=== PATIENT | male | born 1945 | race Two or more races ===

== ENCOUNTER 2017-04-15 20:22 | Inpatient (IN) | payer MEDICARE ==
[~2017-04-15] VITALS: Ht 172.7 cm; Wt 61.7 kg
[2017-04-15] MEDS ORDERED: SODIUM CHLORIDE 0.9% 1000ML 1,000 ML IV ONE ×2 (21:00→22:45)
--- NOTE | 2017-04-15 21:53 | Diagnostic Imaging Report ---
EXAMINATION: CHEST 2 VIEWS INDICATION: Swollen legs. COMPARISON: None FINDINGS: TUBES and LINES: None. LUNGS: Lungs are well inflated. Lungs are clear. There is no evidence of pneumonia or pulmonary edema. PLEURA: No pleural effusion or pneumothorax. HEART AND MEDIASTINUM: The cardiomediastinal silhouette is unremarkable. BONES AND SOFT TISSUES: No acute osseous lesion. Soft tissues are unremarkable. UPPER ABDOMEN: No free air under the diaphragm. IMPRESSION: No acute thoracic abnormality. Signed by: Dr. Vamshi Kapadia M.D. on 04/15/2017 9:50 PM
[2017-04-15 22:04] LABS: BASOPHILS % 0.2 % (0.0-1.0); HEMATOCRIT 36.4 % (38.2-49.6); HEMOGLOBIN 11.9 g/dL (14.0-18.0); LYMPHOCYTES # (AUTO) 1.1 (1.0-3.2); LYMPHOCYTES % 9.9 % (18.0-39.1); MEAN CORPUSCULAR HEMOGLOBIN 29.9 pg (28-32); MEAN CORPUSCULAR HGB CONC 32.7 g/dL (31-35); MEAN CORPUSCULAR VOLUME 91.5 fL (81-99); MONOCYTES # (AUTO) 1.2 (0.2-0.8); MONOCYTES % 11.1 % (4.4-11.3); NEUTROPHILS # (AUTO) 8.4 (2.1-6.9); NEUTROPHILS % 78.2 % (38.7-80.0); PLATELET COUNT 253 x10e3/uL (140-360); RED BLOOD COUNT 3.98 x10e6/uL (4.3-5.7); RED CELL DISTRIBUTION WIDTH 13.2 % (11.7-14.4)
--- NOTE | 2017-04-15 22:12 | Diagnostic Imaging Report ---
Examination: CT BRAIN WITHOUT CONTRAST History:Fever. Nausea. Comparison studies:None Technique: Axial images were obtained from the skull base to the vertex. Coronal and sagittal images reconstructed from the axial data. Intravenous contrast: None Findings: Scalp: No abnormalities. Bones: No fractures, blastic or lytic lesions. Brain sulci: Mild volume loss for age. Ventricles: Normal in size and configuration. No hydrocephalus. Extra-axial space: No abnormalities. Parenchyma: There are mild confluent areas of hypoattenuation in the periventricular and subcortical white matter, nonspecific. No masses, hemorrhage, or acute cortical based vascular insults. Sellar/suprasellar region: No abnormalities. Craniocervical junction: Patent foramen magnum. No Chiari one malformation. Incidental findings: None. Impression: 1. No acute intracranial abnormalities. 2. Mild chronic microvascular ischemic change and volume loss. Signed by: Dr. Mirta Justice M.D. on 04/15/2017 10:08 PM
[2017-04-15 22:30] LABS: ALBUMIN 3.4 g/dL (3.5-5.0); ALBUMIN/GLOBULIN RATIO 0.7 (0.8-2.0); ANION GAP 19.5 mmol/L (8-16); CALCIUM 9.7 mg/dL (8.4-10.2); CREATININE, SERUM 1.22 mg/dL (0.72-1.25); POTASSIUM 4.5 mmol/L (3.5-5.1)
--- NOTE | 2017-04-15 23:56 | Diagnostic Imaging Report ---
ADDENDUM #1 EXAM: CT Abdomen and Pelvis WITH contrast INDICATION: Fever, diarrhea, 25 pound weight loss in one week COMPARISON: None. TECHNIQUE: Abdomen and pelvis were scanned utilizing a multidetector helical scanner from the lung base to the pubic symphysis after administration of IV contrast. Coronal and sagittal reformations were obtained. Routine protocol was performed. Scan was performed when during portal venous phase. IV CONTRAST: 100 mL of Isovue-300 ORAL CONTRAST: Water RADIATION DOSE: Total DLP: 155.1 mGy*cm Estimated effective dose: (DLP x 0.015 x size factor) mSv COMPLICATIONS: None FINDINGS: LINES and TUBES: None. LOWER THORAX: Unremarkable HEPATOBILIARY: There is focal fatty infiltration adjacent to the falciform ligament. No focal hepatic lesions. No biliary ductal dilation. GALLBLADDER: No radio-opaque stones or sludge. No wall thickening. SPLEEN: No splenomegaly. PANCREAS: No focal masses or ductal dilatation. ADRENALS: No adrenal nodules KIDNEYS/URETERS: Kidneys enhance symmetrically. No hydronephrosis. 2.5 cm indeterminate cystic lesion in the inferior pole of the left kidney. 1.9 cm simple cyst in the inferior pole of the right kidney. No stones. GI TRACT: Circumferential thickening and hyperemia of the rectum . Appendix is not clearly identified. There is however no fat stranding or adenopathy in the right lower quadrant to suggest appendicitis. PELVIC ORGANS/BLADDER: Unremarkable. LYMPH NODES: No lymphadenopathy. VESSELS: There is mild atherosclerotic disease in the aorta and major arterial branches. PERITONEUM / RETROPERITONEUM: No free air or fluid. BONES: There are mild degenerative changes in the lumbar spine. SOFT TISSUES: Unremarkable. IMPRESSION: 1. Findings in the pelvis are consistent with proctitis in the appropriate clinical setting. 2. Follow-up with GI service is recommended. 3. Indeterminate lesion in the inferior pole of the left kidney. Follow-up with routine renal ultrasound is recommended for appropriate characterization. Signed by: Dr. Vamshi Kapadia M.D. on 04/16/2017 12:18 AM ORIGINAL REPORT EXAM: CT Abdomen and Pelvis WITH contrast INDICATION: Fever, diarrhea, 25 pound weight loss in one week COMPARISON: None. TECHNIQUE: Abdomen and pelvis were scanned utilizing a multidetector helical scanner from the lung base to the pubic symphysis after administration of IV contrast. Coronal and sagittal reformations were obtained. Routine protocol was performed. Scan was performed when during portal venous phase. IV CONTRAST: 100 mL of Isovue-300 ORAL CONTRAST: Water RADIATION DOSE: Total DLP: 155.1 mGy*cm Estimated effective dose: (DLP x 0.015 x size factor) mSv COMPLICATIONS: None FINDINGS: LINES and TUBES: None. LOWER THORAX: Unremarkable HEPATOBILIARY: There is focal fatty infiltration adjacent to the falciform ligament. No focal hepatic lesions. No biliary ductal dilation. GALLBLADDER: No radio-opaque stones or sludge. No wall thickening. SPLEEN: No splenomegaly. PANCREAS: No focal masses or ductal dilatation. ADRENALS: No adrenal nodules KIDNEYS/URETERS: Kidneys enhance symmetrically. No hydronephrosis. 2.5 cm indeterminate cystic lesion in the inferior pole of the left kidney. 1.9 cm simple cyst in the inferior pole of the right kidney. No stones. GI TRACT: Circumferential thickening and hyperemia of the rectum . Appendix is not clearly identified. There is however no fat stranding or adenopathy in the right lower quadrant to suggest appendicitis. PELVIC ORGANS/BLADDER: Unremarkable. LYMPH NODES: No lymphadenopathy. VESSELS: There is mild atherosclerotic disease in the aorta and major arterial branches. PERITONEUM / RETROPERITONEUM: No free air or fluid. BONES: There are mild degenerative changes in the lumbar spine. SOFT TISSUES: Unremarkable. IMPRESSION: 1. Signed by: Dr. Vamshi Kapadia M.D. on 04/15/2017 11:52 PM
[2017-04-16 00:27] LABS: BILIRUBIN,URINE NEGATIVE (NEGATIVE); KETONES,URINE TRACE (NEGATIVE); LEUKOCYTE ESTERASE ,URINE NEGATIVE (NEGATIVE); NITRITE,URINE NEGATIVE (NEGATIVE); URINE UROBILINOGEN 0.2 mg/dL (0.2 - 1)
[2017-04-16 00:28] LABS: CLARITY,URINE CLEAR (CLEAR); COLOR,URINE YELLOW (YELLOW); PROTEIN,URINE DIPSTICK 1+ (NEGATIVE)
[2017-04-16] MEDS ORDERED: SODIUM CHLORIDE 0.9% 1000ML 1,000 ML IV SCH (00:38)
[2017-04-16 00:43] LABS: EPITHELIAL CELLS,URINE RARE /LPF; RBC,URINE 0-5 /HPF (0-5); WBC,URINE (MAN) 0-5 /HPF (0-5)
[2017-04-16] MEDS ORDERED: ACETAMINOPHEN 325 MG TAB PO ONE (00:45)
[2017-04-16] MEDS ORDERED: PIPER-TAZ 3.375 GM/50 ML BAG IV SCH (00:45)
[2017-04-16] MEDS ORDERED: METRONIDAZOLE 500MG/NS 100ML IV SCH (00:45)
[2017-04-16] MEDS: ONDANSETRON HCL INJ 2 MG/ML VIAL IV PRN (02:47)
[2017-04-16] MEDS: MORPHINE SULFATE 5 MG/ML VIAL IV PRN (02:47)
[2017-04-16] MEDS: PIPER-TAZ 3.375 GM/NS 50 ML 50 ML IV SCH ×3 (05:45→22:00)
[2017-04-16] MEDS: METRONIDAZOLE 500MG/NS 100ML 100 ML IV SCH ×3 (05:54→18:00)
[2017-04-16] MEDS ORDERED: SODIUM CHLORIDE 0.9% 50ML 50 ML ONE (06:37)
[2017-04-16] MEDS ORDERED: IOPAMIDOL 370 MG/ML 200 ML INFUS..BTL INJ ONE (06:37)
[2017-04-16 09:01] LABS: BASOPHILS % 0.1 % (0.0-1.0); HEMATOCRIT 35.9 % (38.2-49.6); HEMOGLOBIN 11.5 g/dL (14.0-18.0); LYMPHOCYTES # (AUTO) 1.1 (1.0-3.2); LYMPHOCYTES % 11.1 % (18.0-39.1); MEAN CORPUSCULAR HEMOGLOBIN 29.7 pg (28-32); MEAN CORPUSCULAR VOLUME 92.8 fL (81-99); MONOCYTES # (AUTO) 1.2 (0.2-0.8); MONOCYTES % 12.2 % (4.4-11.3); NEUTROPHILS # (AUTO) 7.4 (2.1-6.9); PLATELET COUNT 230 x10e3/uL (140-360); RED BLOOD COUNT 3.87 x10e6/uL (4.3-5.7); RED CELL DISTRIBUTION WIDTH 13.4 % (11.7-14.4)
[2017-04-16 09:19] LABS: ANION GAP 14.7 mmol/L (8-16); BLOOD UREA NITROGEN 44 mg/dL (7-26); BUN/CREATININE RATIO 52 (6-25); CALCIUM 8.7 mg/dL (8.4-10.2); CARBON DIOXIDE 25 mmol/L (22-29); CHLORIDE 114 mmol/L (98-107); CREATININE, SERUM 0.84 mg/dL (0.72-1.25); EST GLOMERULAR FILTRATION RATE > 60 ML/MIN (60-); GLUCOSE 83 mg/dL (74-118); MAGNESIUM 2.7 MG/DL (1.3-2.1); POTASSIUM 3.7 mmol/L (3.5-5.1); SODIUM 150 mmol/L (136-145)
--- NOTE | 2017-04-16 10:54 | Diagnostic Imaging Report ---
EXAM: Renal Ultrasound INDICATION: Nausea. COMPARISON: CT abdomen and pelvis 04/15/2017 TECHNIQUE: Transverse and longitudinal images of the kidneys and bladder were obtained. FINDINGS: Right Kidney: Size: 11.0 cm. Renal cortex: 1.1 cm Echogenicity: Normal Collecting system: No hydronephrosis Stones: None Cyst/Mass: 1.1 x 0.9 x 0.9 cm simple cyst in the superior pole. No solid mass. Left Kidney: Size: 10.1 cm. Renal cortex: 1.0 cm Echogenicity: Normal Collecting system: No hydronephrosis Stones: None Cyst/Mass: 2.6 x 3.2 x 2.3 cm simple cyst is present in the inferior pole. No solid mass. Bladder: Normal contour. Bilateral ureteral jets are not visualized. Ascites: No free fluid. IMPRESSION: Bilateral renal simple cysts. No acute sonographic abnormality. Signed by: Dr. Joey Vogel M.D. on 04/16/2017 10:50 AM
[2017-04-16] MEDS ORDERED: PROPOFOL IV EMULSION 10 MG/ML 20 ML VIAL ONE (14:41)
[2017-04-16] MEDS ORDERED: FENTANYL CITRATE/PF 100MCG/2 ML INJ ONE (14:54)
[2017-04-16] MEDS ORDERED: MIDAZOLAM HCL 2 MG/2 ML VIAL ONE (14:54)
[2017-04-16] MEDS ORDERED: DEXTROSE 5% 1000ML 1,000 ML IV SCH (15:00)
[2017-04-16] MEDS ORDERED: BRIMONIDINE TART5 ML OP (15:41)
[2017-04-16] MEDS ORDERED: COMBIGAN EYE DRO5 ML OU (15:41)
[2017-04-16] MEDS ORDERED: ULTRAM 50MG50 MG PO (15:43)
[2017-04-16 16:38] VITALS: BP 130/70
[2017-04-16] MEDS: BRIMONIDINE/TIMOLOL (OPTH SOLN 5 ML DRPETTE OP SCH (17:00)
--- NOTE | 2017-04-16 17:44 | History and Physical ---
The patient does not have a local PCP CHIEF COMPLAINT: Diarrhea and weight loss. HISTORY OF PRESENT ILLNESS: Mr. Mckeon is a 71-year-old gentleman who presents with diarrhea and weight loss that has occurred over the last 10 to 14 days. The patient ate a bowl of soup about 10 days ago and had initially nausea and vomiting which has resolved, poor appetite and diarrhea that has been persistent for the last 10 days. He has lost weight from 140 down to 110. During that period, he has had no p.o. intake of anything down for the last 10 days, not even water. He cannot quite explain why he has not eaten or drank anything. He is not nauseated. His appetite is okay, but he was afraid that if he ate anything it would make the diarrhea worse is why he has not eaten. REVIEW OF SYSTEMS: He denies fever or chills. He has had significant weight loss. He denies sinus congestion or sore throat. He denies chest pain or palpitations. He denies shortness breath, wheezing or cough. He has some generalized abdominal pain. Denies nausea and vomiting although he did have some a week ago. He has had persistent diarrhea for the past 10 to 14 days. He denies dysuria or flank pain. He denies rash or pruritus. He denies joint pain or swelling. Denies headache, vertigo or loss of consciousness. He denies depression, agitation, homicidal or suicidal ideation. He denies bleeding or bruising. 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 He also has glaucoma and takes eye drops. ALLERGIES: NO KNOWN DRUG ALLERGIES. PAST SURGICAL HISTORY: Includes hernia repair. FAMILY HISTORY: Unremarkable. He denies family history of hypertension, diabetes or heart disease. SOCIAL HISTORY: The patient is . Telugu is his primary language. 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 He does not smoke, drink or use illegal drugs. He is generally independently functioning. He has been profoundly weak for the past 10 days. PHYSICAL EXAM: PSYCHIATRIC: He is alert and oriented times 3 with normal mood and affect. CONSTITUTIONAL: He is cachectic and emaciated. He weighs 110 pounds. He is in no acute distress. VITAL SIGNS: His initial blood pressure 113/79. Current blood pressure 132/76. Initial heart rate 77, current heart rate 57. Initial temperature 100.0. Current temperature 98.3. Respiratory rate 18. O2 sat 100% on room air. HEENT: Head is atraumatic. His eyes are anicteric with clear conjunctivae. Ears and nares are without erythema or discharge. Oropharynx is clear. NECK: Is supple with no mass or thyromegaly. LYMPHATIC SYSTEM: He has no palpable cervical, axillary or inguinal adenopathy. CARDIOVASCULAR: His heart has a regular rate and rhythm without murmur or extra heart sounds. No carotid bruit. Has no peripheral edema. Has palpable dorsal pedal pulses. RESPIRATORY: Clear to auscultation and percussion with normal respiratory effort. GASTROINTESTINAL: Abdomen is soft. He has some mild diffuse tenderness without rebound or guarding. He has no hepatosplenomegaly or masses palpable and normal bowel sounds are present. CUTANEOUS: His skin is warm and dry to touch with no rash or skin breakdown. MUSCULOSKELETAL: His joints are normal alignment without erythema or swelling. Has no calf tenderness. NEUROLOGIC: Exam is nonfocal with intact cranial nerves and no motor or sensory deficits. DIAGNOSTIC STUDIES: Chest x-ray shows no acute disease. CT scan of brain shows no acute disease. It shows some mild microvascular changes. Renal ultrasound shows no acute disease, but bilateral simple cysts. CT scan the abdomen shows thickening of the wall of the rectum and distal sigmoid colon consistent with colitis and proctitis. His UA is clear. TSH 0.540. His chemistry profile shows normal electrolytes. CO2 25. Creatinine 106. Glucose 111. Creatinine 1.22. BUN 63 for a GFR 59. Calcium 9.7. CBC shows a white count of 10.74 with 78% neutrophils, 10% lymphocytes, 11% monocytes. Hemoglobin 11.9, hematocrit 36.4 and platelet count 253,000. His transaminases, bilirubin and alkaline phos are normal. IMPRESSION AND PLAN 1. Persistent diarrhea/colitis/proctitis. The patient is started on IV Zosyn and Flagyl. I have ordered stool culture, stool for C. diff. and stool for occult blood. 2. Profound weight loss. GI has been consulted for colonoscopy in view of the above symptoms. 3. For prophylaxis the patient is on Pepcid and for GI prophylaxis SCDs for DVT prophylaxis. 4. Will also get a CT scan of the chest for part of the weight loss workup. Job#: [id number]
[2017-04-16] MEDS: TRAMADOL HCL 50 MG TAB PO PRN (18:07)
[2017-04-16] MEDS ORDERED: PEG (High)/E-LYTE SOLN 4,000 ML BTL PO ONE (19:30)
[2017-04-16 20:00] VITALS: BP 124/77
[2017-04-17] MEDS: METRONIDAZOLE 500MG/NS 100ML 100 ML IV SCH ×4 (00:17→17:52)
[2017-04-17] MEDS: ZOLPIDEM TARTRATE 10 MG TAB PO PRN ×2 (00:30→23:44)
[2017-04-17 00:51] VITALS: BP 138/80
[2017-04-17] MEDS ORDERED: CITRATE OF MAGNESIA 300ML BOTTLE PO ONE (01:00)
[2017-04-17 04:00] VITALS: BP 149/89
[2017-04-17] MEDS: PIPER-TAZ 3.375 GM/NS 50 ML 50 ML IV SCH ×3 (06:30→22:14)
[2017-04-17] MEDS ORDERED: SODIUM CHLORIDE 0.9% 50ML 0 ML ONE (06:31)
[2017-04-17] MEDS ORDERED: IOPAMIDOL 370 MG/ML 200 ML INFUS..BTL INJ ONE ×2 (06:31→12:41)
[2017-04-17 07:56] VITALS: BP 181/84
[2017-04-17 07:58] LABS: BASOPHILS % 0.1 % (0.0-1.0); EOSINOPHILS % 0.4 % (0.0-6.0); HEMATOCRIT 36.3 % (38.2-49.6); HEMOGLOBIN 11.5 g/dL (14.0-18.0); LYMPHOCYTES # (AUTO) 1.2 (1.0-3.2); LYMPHOCYTES % 13.8 % (18.0-39.1); MEAN CORPUSCULAR HEMOGLOBIN 29.6 pg (28-32); MEAN CORPUSCULAR HGB CONC 31.7 g/dL (31-35); MEAN CORPUSCULAR VOLUME 93.3 fL (81-99); MONOCYTES # (AUTO) 0.9 (0.2-0.8); NEUTROPHILS # (AUTO) 6.2 (2.1-6.9); NEUTROPHILS % 73.9 % (38.7-80.0); PLATELET COUNT 264 x10e3/uL (140-360); RED BLOOD COUNT 3.89 x10e6/uL (4.3-5.7); RED CELL DISTRIBUTION WIDTH 13.4 % (11.7-14.4)
[2017-04-17 08:31] LABS: ALANINE AMINOTRANSFERASE 15 IU/L (0-55); ALBUMIN 2.9 g/dL (3.5-5.0); ALBUMIN/GLOBULIN RATIO 0.8 (0.8-2.0); ALKALINE PHOSPHATASE 57 IU/L (40-150); ANION GAP 12.6 mmol/L (8-16); BLOOD UREA NITROGEN 29 mg/dL (7-26); BUN/CREATININE RATIO 36 (6-25); CALCIUM 8.9 mg/dL (8.4-10.2); CARBON DIOXIDE 26 mmol/L (22-29); CHLORIDE 114 mmol/L (98-107); EST GLOMERULAR FILTRATION RATE > 60 ML/MIN (60-); GLUCOSE 108 mg/dL (74-118); POTASSIUM 3.6 mmol/L (3.5-5.1); SODIUM 149 mmol/L (136-145)
[2017-04-17 09:00] LABS: FOLATE 13.5 ng/mL (7.0-15.4)
[2017-04-17 09:10] VITALS: BP 138/86
[2017-04-17] MEDS: BRIMONIDINE/TIMOLOL (OPTH SOLN 5 ML DRPETTE OP SCH ×2 (09:26→22:20)
[2017-04-17 09:36] LABS: FERRITIN 292.65 ng/mL (21.81-274.66)
--- NOTE | 2017-04-17 10:55 | Diagnostic Imaging Report ---
PROCEDURE: CT scan of the chest WITH intravenous contrast, using standard protocol. TECHNIQUE: The chest was scanned utilizing a multidetector helical scanner from the lung apex through the level of the adrenal glands after the IV administration of 100 cc of Isovue 370. Coronal and sagittal multiplanar reformations were obtained. COMPARISON: CT abdomen and pelvis 04/15/2017. INDICATIONS: WEIGHT LOSS FINDINGS: Lines/tubes: None. Lungs and Airways: The lungs and airways are normal with no focal abnormality demonstrated. Pleura: The pleural spaces are clear. Heart and mediastinum: The thyroid gland is normal. No significant mediastinal, hilar or axillary lymphadenopathy is seen. The heart and pericardium are within normal limits. Calcified lymph nodes are present in the right hilum and in the subcarinal region. Soft tissues: Normal. Abdomen: Limited contrast-enhanced views of the upper abdomen show no abnormality within the visualized liver, spleen, pancreas, or kidneys. The adrenal glands are normal. Bones: The visualized bony thorax is within normal limits. Degenerative changes of the thoracic spine. IMPRESSION: No acute abnormality of the chest. Dictated by: Joey Vogel M.D. on 04/17/2017 at 11:02 Electronically approved by: Joey Vogel M.D. on 04/17/2017 at 11:02
--- NOTE | 2017-04-17 12:25 | Progress Note ---
DATE: BINDER OPERATOR: Dr. Immanuel Garibay. CHIEF COMPLAINT: Diarrhea, proctitis. SUBJECTIVE: Complains of neck pain 5/10. Complains of rectal pain 8/10. OBJECTIVE VITAL SIGNS: Temperature 99.4, pulse 58, blood pressure 181/84, respiration 16, satting 99%. Weight 117, BMI 17.78. MEDICATIONS: Please see MAR. ASSESSMENT GENERAL: Patient is awake, alert, oriented x3. LUNGS: Clear to auscultation bilaterally. Normal respiratory effort. HEENT: Extraocular muscles are intact. Sclerae anicteric. ABDOMEN: Soft, flat. Bowel sounds present. RECTUM: Does have what probably appears to be either external hemorrhoids or likely some lesions, questionable type of condyloma. Patient will have a colonoscopy done today as well as EGD. CARDIOVASCULAR: Regular rate and rhythm. No murmurs appreciated. NEUROLOGICAL: Nonfocal. NECK: Supple. Trachea midline. EXTREMITIES: No calf tenderness. LABS: Sodium 149, potassium 3.6, chloride 114, CO2 26, BUN 29, creatinine 0.80, glucose 108. White count 8.45, hemoglobin 11.5, hematocrit 36.3, platelets 264. AST 19, ALT 15, total bilirubin 0.7, alkaline phosphatase 57. DIAGNOSES 1. Diarrhea, proctitis. Will continue with IV Zosyn and Flagyl. Stool for occult blood is positive. C. diff is pending. 2. Weight loss, unexplained. Will continue with a consult with GI, who is on the case. Patient will have a colonoscopy and EGD done today. Will continue on prophylaxis Pepcid and SCDs. Will also add Carafate 1 gram p.o. a.c. and nightly. Dictated by: Luis Alfredo Rutherford NP Job#: [id number]
[2017-04-17] MEDS ORDERED: CITRATE OF MAGNESIA 300ML BOTTLE PO NR (12:30)
[2017-04-17] MEDS ORDERED: SODIUM CHLORIDE 0.9% 50ML 50 ML ONE (12:41)
[2017-04-17 13:18] VITALS: BP 145/73
[2017-04-17] MEDS ORDERED: PANTOPRAZOLE 40 MG 10ML VIAL IV STA (17:02)
[2017-04-17] MEDS ORDERED: PANTOPRAZOL 40MG/SOD CHL 0.9% 250 ML IV SCH (17:15)
[2017-04-17] MEDS: FERROUS SULFATE 325 MG TAB PO SCH (17:52)
[2017-04-17] MEDS: PANTOPRAZOL 40MG/SOD CHL 0.9% 50 ML IV SCH ×2 (18:37→22:14)
[2017-04-17 19:09] LABS: WBC,FECAL (FECAL LACTOFERRIN) POSITIVE (NEGATIVE)
[2017-04-17 19:50] VITALS: BP 120/69
[2017-04-17] MEDS: MESALAMINE 1,000 MG SUPP RC SCH (22:14)
[2017-04-17] MEDS: SUCRALFATE 1 GM TAB PO SCH (22:14)
[2017-04-18 00:13] VITALS: BP 112/67
[2017-04-18] MEDS: METRONIDAZOLE 500MG/NS 100ML 100 ML IV SCH ×5 (01:15→23:45)
[2017-04-18] MEDS: PANTOPRAZOL 40MG/SOD CHL 0.9% 50 ML IV SCH ×4 (03:47→20:19)
[2017-04-18 04:59] VITALS: BP_SYST 112; BP_SYST 123; BP_DIAS 67; BP_DIAS 68
[2017-04-18] MEDS: SODIUM CHLORIDE 0.9% 1000ML 1,000 ML IV SCH ×2 (05:26→17:23)
[2017-04-18] MEDS: PIPER-TAZ 3.375 GM/NS 50 ML 50 ML IV SCH ×3 (05:36→21:59)
[2017-04-18] MEDS: TRAMADOL HCL 50 MG TAB PO PRN (05:42)
[2017-04-18 06:58] LABS: BASOPHILS % 0.1 % (0.0-1.0); EOSINOPHILS % 0.3 % (0.0-6.0); HEMATOCRIT 30.4 % (38.2-49.6); HEMOGLOBIN 9.9 g/dL (14.0-18.0); LYMPHOCYTES # (AUTO) 1.3 (1.0-3.2); LYMPHOCYTES % 18.3 % (18.0-39.1); MEAN CORPUSCULAR HEMOGLOBIN 30.1 pg (28-32); MEAN CORPUSCULAR HGB CONC 32.6 g/dL (31-35); MEAN CORPUSCULAR VOLUME 92.4 fL (81-99); MONOCYTES # (AUTO) 0.6 (0.2-0.8); MONOCYTES % 7.9 % (4.4-11.3); NEUTROPHILS # (AUTO) 5.1 (2.1-6.9); PLATELET COUNT 202 x10e3/uL (140-360); RED BLOOD COUNT 3.29 x10e6/uL (4.3-5.7); RED CELL DISTRIBUTION WIDTH 13.2 % (11.7-14.4)
[2017-04-18 07:26] LABS: ANION GAP 10.8 mmol/L (8-16); BLOOD UREA NITROGEN 21 mg/dL (7-26); BUN/CREATININE RATIO 27 (6-25); CALCIUM 7.8 mg/dL (8.4-10.2); CARBON DIOXIDE 22 mmol/L (22-29); CHLORIDE 111 mmol/L (98-107); CREATININE, SERUM 0.77 mg/dL (0.72-1.25); EST GLOMERULAR FILTRATION RATE > 60 ML/MIN (60-); GLUCOSE 103 mg/dL (74-118); SODIUM 141 mmol/L (136-145)
[2017-04-18 07:30] LABS: POTASSIUM 2.8 mmol/L (3.5-5.1)
[2017-04-18 08:24] VITALS: BP 114/61
[2017-04-18] MEDS ORDERED: POTASSIUM CHLORIDE 20 MEQ TAB CR PO NR (08:45)
[2017-04-18] MEDS: FERROUS SULFATE 325 MG TAB PO SCH ×2 (09:50→17:23)
[2017-04-18] MEDS: ASCORBIC ACID 500 MG TAB PO SCH (09:50)
[2017-04-18] MEDS: BRIMONIDINE/TIMOLOL (OPTH SOLN 5 ML DRPETTE OP SCH ×2 (09:50→21:59)
[2017-04-18] MEDS: SUCRALFATE 1 GM TAB PO SCH ×4 (09:50→21:59)
[2017-04-18 11:44] LABS: C DIFFICILE TOXIN A&B AMP PROB NEGATIVE (NEGATIVE)
[2017-04-18 12:21] VITALS: BP 110/65
[2017-04-18] MEDS ORDERED: SODIUM CHLORIDE 0.9% 250ML 250 ML ONE (12:21)
[2017-04-18 15:44] LABS: HIV 1&2 AB SCREEN NON-REACTIVE (NONREACTIVE)
[2017-04-18 16:08] VITALS: BP 131/84
[2017-04-18] MEDS: MEGACE 400MG/ 10ML CUP PO SCH (17:23)
[2017-04-18] MEDS: ACETAMINOPHEN 325 MG TAB PO PRN (20:19)
[2017-04-18 20:26] VITALS: BP 120/66
[2017-04-18] MEDS: ZOLPIDEM TARTRATE 10 MG TAB PO PRN (21:43)
[2017-04-18] MEDS: MESALAMINE 1,000 MG SUPP RC SCH (21:59)
[2017-04-19] MEDS: TRAMADOL HCL 50 MG TAB PO PRN ×4 (00:36→21:41)
[2017-04-19 00:59] VITALS: BP 115/69
[2017-04-19] MEDS: PANTOPRAZOL 40MG/SOD CHL 0.9% 50 ML IV SCH ×2 (01:16→06:11)
[2017-04-19 04:49] VITALS: BP 131/78
[2017-04-19] MEDS: PIPER-TAZ 3.375 GM/NS 50 ML 50 ML IV SCH ×3 (05:26→21:41)
[2017-04-19] MEDS: METRONIDAZOLE 500MG/NS 100ML 100 ML IV SCH ×3 (06:06→17:36)
[2017-04-19 06:21] LABS: CLARITY,URINE SL CLOUDY (CLEAR); COLOR,URINE YELLOW (YELLOW)
[2017-04-19 06:35] LABS: BILIRUBIN,URINE NEGATIVE (NEGATIVE); KETONES,URINE NEGATIVE (NEGATIVE); LEUKOCYTE ESTERASE ,URINE NEGATIVE (NEGATIVE); NITRITE,URINE NEGATIVE (NEGATIVE); PROTEIN,URINE DIPSTICK NEGATIVE (NEGATIVE); URINE UROBILINOGEN 0.2 mg/dL (0.2 - 1)
[2017-04-19 06:42] LABS: EPITHELIAL CELLS,URINE RARE /LPF
[2017-04-19 06:57] LABS: BASOPHILS % 0.1 % (0.0-1.0); EOSINOPHILS # (AUTO) 0.1 (0.0-0.4); EOSINOPHILS % 0.8 % (0.0-6.0); HEMATOCRIT 30.1 % (38.2-49.6); LYMPHOCYTES # (AUTO) 1.6 (1.0-3.2); LYMPHOCYTES % 18.3 % (18.0-39.1); MEAN CORPUSCULAR HGB CONC 33.2 g/dL (31-35); MEAN CORPUSCULAR VOLUME 90.4 fL (81-99); MONOCYTES # (AUTO) 0.6 (0.2-0.8); MONOCYTES % 6.6 % (4.4-11.3); NEUTROPHILS # (AUTO) 6.6 (2.1-6.9); NEUTROPHILS % 73.5 % (38.7-80.0); PLATELET COUNT 231 x10e3/uL (140-360); RED BLOOD COUNT 3.33 x10e6/uL (4.3-5.7); RED CELL DISTRIBUTION WIDTH 12.9 % (11.7-14.4)
[2017-04-19 07:16] LABS: ANION GAP 7.9 mmol/L (8-16); BLOOD UREA NITROGEN 16 mg/dL (7-26); BUN/CREATININE RATIO 23 (6-25); CALCIUM 7.6 mg/dL (8.4-10.2); CARBON DIOXIDE 24 mmol/L (22-29); CHLORIDE 110 mmol/L (98-107); EST GLOMERULAR FILTRATION RATE > 60 ML/MIN (60-); GLUCOSE 98 mg/dL (74-118); SODIUM 139 mmol/L (136-145)
[2017-04-19 07:36] LABS: POTASSIUM 2.9 mmol/L (3.5-5.1)
[2017-04-19] MEDS: FERROUS SULFATE 325 MG TAB PO SCH ×2 (08:00→17:00)
[2017-04-19] MEDS: ASCORBIC ACID 500 MG TAB PO SCH (08:05)
[2017-04-19] MEDS: SUCRALFATE 1 GM TAB PO SCH ×4 (08:05→21:08)
[2017-04-19] MEDS: MEGACE 400MG/ 10ML CUP PO SCH ×2 (08:05→17:00)
[2017-04-19 08:18] VITALS: BP 139/81
--- NOTE | 2017-04-19 09:23 | Operative Report ---
DATE OF PROCEDURE: April 17, 2017 REFERRING PHYSICIAN: Dr. Cassie Rodriguez PROCEDURES PERFORMED 1. Esophagogastroduodenoscopy with biopsies. 2. Colonoscopy with biopsies. INDICATIONS FOR EGD: Weight loss and early satiety. INDICATIONS FOR COLONOSCOPY: Diarrhea and weight loss. MEDICATION: Patient was done under MAC. Please see anesthesiologist's note. PROCEDURE: With the patient in the left lateral decubitus position, the flexible fiberoptic Olympus gastroscope was introduced into the esophagus without any difficulty. The esophagus overall appeared to be within normal limits. The scope was then advanced with ease into the stomach, and there were some patchy atrophic changes noted in the body of the stomach and multiple biopsies were obtained. There were several minute ulcers noted in the antrum without active bleeding and also multiple biopsies were obtained and sent to stain for H. pylori. The pylorus was of normal contour and shape. It was intubated with ease. The scope was advanced all the way to the 2nd portion of the duodenum. The scope was then withdrawn slowly. Mucosa overlying the proximal 2nd portion and the duodenal bulb appeared to be within normal limits. The scope was then withdrawn back into the stomach and retroflexed. Mucosa overlying the fundus and the cardia appeared to be within normal limits. The scope was then straightened out. The stomach was decompressed. The scope was subsequently withdrawn. Patient tolerated the procedure well. IMPRESSION 1. Normal esophagus. 2. Gastric ulcers, multiple, antrum. Biopsies obtained and sent to stain for Helicobacter pylori. 3. Rule out atrophic gastritis, body. PLAN: Follow up histology. Continue PPI therapy. Patient was then turned around. After adequate lubrication of the anal canal, a flexible fiberoptic Olympus colonoscope was inserted into the rectum with ease and advanced all the way to the cecum. Mucosa overlying the cecum appeared to be within normal limits. The ileocecal valve was intubated. The scope was advanced into the terminal ileum. Biopsies were obtained. The scope was then withdrawn back into the colon and it was withdrawn slowly. The mucosa overlying the ascending and the transverse appeared to be within normal limits. The mucosa overlying the descending and the proximal sigmoid revealed some patchy areas of erythema and low-grade edema, and biopsies were obtained. The distal sigmoid and the rectum were diffusely ulcerated and biopsies were obtained. The scope was then retroflexed into the distal rectum. There was some small internal hemorrhoids noted, none of which was actively bleeding. The scope was then straightened out. The rectosigmoid area, as well as the distal rectal area were decompressed. The scope was subsequently withdrawn after securing an adequate stool specimen that was sent for the appropriate stool studies. Patient tolerated the procedure well. IMPRESSION 1. Mild patchy left-sided colitis. 2. Ulcerative proctosigmoiditis. 3. Internal hemorrhoids, none actively bleeding. PLAN: Follow up histology. Follow up stool studies. Check IBD panel, sed rate and CRP. Initiate Canasa 1000 mg suppositories at bedtime. Job#: [id number] RI cc:CASSIE RODRIGUEZ MD
[2017-04-19] MEDS: SODIUM CHLORIDE 0.9% 1000ML 1,000 ML IV SCH (09:30)
[2017-04-19] MEDS: BRIMONIDINE/TIMOLOL (OPTH SOLN 5 ML DRPETTE OP SCH ×2 (09:42→21:09)
[2017-04-19] MEDS ORDERED: POTASSIUM CHLORIDE 20 MEQ TAB CR PO NR (11:00)
[2017-04-19 12:33] VITALS: BP 126/85
[2017-04-19 16:20] VITALS: BP 123/75
[2017-04-19] MEDS: PANTOPRAZOLE SOD 40 MG TABEC PO SCH (16:30)
[2017-04-19 20:00] VITALS: BP 115/71
[2017-04-19] MEDS: MESALAMINE 1,000 MG SUPP RC SCH (21:08)
[2017-04-20] MEDS: MORPHINE SULFATE 5 MG/ML VIAL IV PRN ×3 (00:30→22:19)
[2017-04-20 04:00] VITALS: BP 119/77
[2017-04-20] MEDS: METRONIDAZOLE 500MG/NS 100ML 100 ML IV SCH ×4 (05:05→18:00)
[2017-04-20] MEDS: SODIUM CHLORIDE 0.9% 1000ML 1,000 ML IV SCH ×2 (05:05→15:30)
[2017-04-20] MEDS: PIPER-TAZ 3.375 GM/NS 50 ML 50 ML IV SCH ×3 (05:52→20:00)
[2017-04-20 07:18] LABS: ANION GAP 11.3 mmol/L (8-16); BLOOD UREA NITROGEN 14 mg/dL (7-26); BUN/CREATININE RATIO 21 (6-25); CALCIUM 7.9 mg/dL (8.4-10.2); CARBON DIOXIDE 23 mmol/L (22-29); CHLORIDE 110 mmol/L (98-107); CREATININE, SERUM 0.66 mg/dL (0.72-1.25); EST GLOMERULAR FILTRATION RATE > 60 ML/MIN (60-); GLUCOSE 93 mg/dL (74-118); POTASSIUM 3.3 mmol/L (3.5-5.1); SODIUM 141 mmol/L (136-145)
[2017-04-20 07:48] VITALS: BP 118/68
[2017-04-20] MEDS: PANTOPRAZOLE SOD 40 MG TABEC PO SCH ×2 (08:15→16:30)
[2017-04-20] MEDS: SUCRALFATE 1 GM TAB PO SCH ×4 (08:15→20:00)
[2017-04-20] MEDS: FERROUS SULFATE 325 MG TAB PO SCH ×2 (08:15→17:00)
[2017-04-20] MEDS: ASCORBIC ACID 500 MG TAB PO SCH (09:00)
[2017-04-20] MEDS: BRIMONIDINE/TIMOLOL (OPTH SOLN 5 ML DRPETTE OP SCH ×2 (09:00→20:04)
[2017-04-20] MEDS: MEGACE 400MG/ 10ML CUP PO SCH ×2 (09:00→17:00)
[2017-04-20 11:58] VITALS: BP 113/68
[2017-04-20] MEDS ORDERED: POTASSIUM CHLORIDE 20 MEQ TAB CR PO ONE (15:00)
[2017-04-20] MEDS: TRAMADOL HCL 50 MG TAB PO PRN (15:36)
[2017-04-20 16:00] VITALS: BP 101/59
[2017-04-20 20:00] VITALS: BP 117/70
[2017-04-20] MEDS: MESALAMINE 1,000 MG SUPP RC SCH (20:00)
[2017-04-20] MEDS: ALPRAZOLAM 1 MG TAB PO PRN (21:08)
[2017-04-20] MEDS: ONDANSETRON HCL INJ 2 MG/ML VIAL IV PRN (22:19)
[2017-04-21] VITALS: BP 111/64
[2017-04-21] MEDS: METRONIDAZOLE 500MG/NS 100ML 100 ML IV SCH ×4 (00:19→17:45)
[2017-04-21] MEDS: TRAMADOL HCL 50 MG TAB PO PRN ×3 (00:39→15:35)
[2017-04-21] MEDS ORDERED: DIPHENOXYLATE/ATROPINE TAB PO ONE (02:00)
[2017-04-21] MEDS ORDERED: MELATONIN 3 MG TAB PO ONE ×2 (02:10→02:15)
[2017-04-21] MEDS ORDERED: DIPHENHYDRAMINE HCL 25 MG CAP PO ONE ×2 (02:15→05:17)
[2017-04-21] MEDS: SODIUM CHLORIDE 0.9% 1000ML 1,000 ML IV SCH ×3 (02:31→21:30)
[2017-04-21 04:00] VITALS: BP 111/70
[2017-04-21] MEDS: PIPER-TAZ 3.375 GM/NS 50 ML 50 ML IV SCH ×3 (04:52→22:00)
[2017-04-21 06:44] LABS: BLOOD UREA NITROGEN 13 mg/dL (7-26); BUN/CREATININE RATIO 18 (6-25); CALCIUM 7.9 mg/dL (8.4-10.2); CARBON DIOXIDE 23 mmol/L (22-29); CHLORIDE 111 mmol/L (98-107); CREATININE, SERUM 0.73 mg/dL (0.72-1.25); EST GLOMERULAR FILTRATION RATE > 60 ML/MIN (60-); GLUCOSE 103 mg/dL (74-118); SODIUM 140 mmol/L (136-145)
[2017-04-21 07:44] VITALS: BP 125/82
[2017-04-21] MEDS: SUCRALFATE 1 GM TAB PO SCH ×4 (08:00→21:00)
[2017-04-21] MEDS: FERROUS SULFATE 325 MG TAB PO SCH ×2 (08:00→17:25)
[2017-04-21] MEDS: PANTOPRAZOLE SOD 40 MG TABEC PO SCH ×2 (08:00→16:50)
[2017-04-21] MEDS: BRIMONIDINE/TIMOLOL (OPTH SOLN 5 ML DRPETTE OP SCH ×2 (09:00→21:00)
[2017-04-21] MEDS: ASCORBIC ACID 500 MG TAB PO SCH (09:22)
[2017-04-21] MEDS: MEGACE 400MG/ 10ML CUP PO SCH ×2 (09:22→17:25)
[2017-04-21 11:32] VITALS: BP 112/75
[2017-04-21] MEDS ORDERED: POTASSIUM CHLORIDE 10 MEQ TABCR PO ONE (13:00)
[2017-04-21] MEDS ORDERED: POTASSIUM CHLORIDE 20 MEQ TAB CR PO NR (13:30)
[2017-04-21 15:43] VITALS: BP 135/96
[2017-04-21] MEDS ORDERED: MELATONIN 3 MG TAB PO PRN (15:45)
[2017-04-21] MEDS: MESALAMINE 1,000 MG SUPP RC SCH (21:00)
[2017-04-22] MEDS ORDERED: LORAZEPAM INJ 2 MG/ML VIAL ONE (00:57)
[2017-04-22] MEDS ORDERED: DIPHENOXYLATE/ATROPINE TAB ONE (00:58)
[2017-04-22] MEDS ORDERED: METHYLPREDNISOLONE SOD SUCC 40 MG/ML VIAL ONE (01:17)
[2017-04-22 04:00] VITALS: BP 135/81
[2017-04-22] MEDS: PIPER-TAZ 3.375 GM/NS 50 ML 50 ML IV SCH ×3 (06:00→21:30)
[2017-04-22] MEDS: METRONIDAZOLE 500MG/NS 100ML 100 ML IV SCH ×4 (06:00→18:19)
[2017-04-22] MEDS: SODIUM CHLORIDE 0.9% 1000ML 1,000 ML IV SCH ×2 (07:30→20:34)
[2017-04-22 07:43] VITALS: BP 118/78
[2017-04-22] MEDS: SUCRALFATE 1 GM TAB PO SCH ×4 (08:03→21:30)
[2017-04-22] MEDS: PANTOPRAZOLE SOD 40 MG TABEC PO SCH ×2 (08:03→17:05)
[2017-04-22 08:11] LABS: BASOPHILS % 0.1 % (0.0-1.0); HEMATOCRIT 31.2 % (38.2-49.6); HEMOGLOBIN 10.4 g/dL (14.0-18.0); LYMPHOCYTES # (AUTO) 0.7 (1.0-3.2); LYMPHOCYTES % 7.3 % (18.0-39.1); MEAN CORPUSCULAR HEMOGLOBIN 29.9 pg (28-32); MEAN CORPUSCULAR HGB CONC 33.3 g/dL (31-35); MEAN CORPUSCULAR VOLUME 89.7 fL (81-99); MONOCYTES # (AUTO) 0.1 (0.2-0.8); MONOCYTES % 1.1 % (4.4-11.3); NEUTROPHILS # (AUTO) 8.1 (2.1-6.9); PLATELET COUNT 299 x10e3/uL (140-360); RED BLOOD COUNT 3.48 x10e6/uL (4.3-5.7); RED CELL DISTRIBUTION WIDTH 13.8 % (11.7-14.4)
[2017-04-22 08:32] LABS: ANION GAP 10.9 mmol/L (8-16); BLOOD UREA NITROGEN 10 mg/dL (7-26); BUN/CREATININE RATIO 14 (6-25); CALCIUM 8.2 mg/dL (8.4-10.2); CARBON DIOXIDE 24 mmol/L (22-29); CHLORIDE 109 mmol/L (98-107); CREATININE, SERUM 0.72 mg/dL (0.72-1.25); EST GLOMERULAR FILTRATION RATE > 60 ML/MIN (60-); GLUCOSE 116 mg/dL (74-118); POTASSIUM 3.9 mmol/L (3.5-5.1); SODIUM 140 mmol/L (136-145)
[2017-04-22] MEDS ORDERED: DIPHENOXYLATE/ATROPINE TAB PO SCH (09:00)
[2017-04-22] MEDS: DIPHENOXYLATE/ATROPINE TAB PO SCH ×2 (09:00→17:23)
[2017-04-22] MEDS: MEGACE 400MG/ 10ML CUP PO SCH ×2 (09:12→17:23)
[2017-04-22] MEDS: FERROUS SULFATE 325 MG TAB PO SCH ×2 (09:12→17:23)
[2017-04-22] MEDS: BRIMONIDINE/TIMOLOL (OPTH SOLN 5 ML DRPETTE OP SCH ×2 (09:12→21:30)
[2017-04-22] MEDS: ASCORBIC ACID 500 MG TAB PO SCH (09:13)
[2017-04-22 11:18] VITALS: BP 136/85
[2017-04-22] MEDS ORDERED: METHYLPREDNISOLONE ACETATE 80 MG/ML VIAL INJ SCH (12:00)
[2017-04-22] MEDS: METHYLPREDNISOLONE ACETATE 40 MG/ML VIAL IV SCH ×2 (13:09→18:19)
[2017-04-22] MEDS: TRAMADOL HCL 50 MG TAB PO PRN (13:30)
[2017-04-22 15:15] VITALS: BP 114/76
[2017-04-22 19:45] VITALS: BP 119/81
[2017-04-22] MEDS: MESALAMINE 1,000 MG SUPP RC SCH (21:30)
[2017-04-22] MEDS: ALPRAZOLAM 1 MG TAB PO PRN (21:30)
[2017-04-23 00:30] VITALS: BP 94/60
[2017-04-23] MEDS: METHYLPREDNISOLONE ACETATE 40 MG/ML VIAL IV SCH ×2 (00:40→05:31)
[2017-04-23] MEDS: METRONIDAZOLE 500MG/NS 100ML 100 ML IV SCH ×4 (00:40→17:29)
[2017-04-23] MEDS: ALPRAZOLAM 1 MG TAB PO PRN ×2 (00:40→20:53)
[2017-04-23] MEDS: SODIUM CHLORIDE 0.9% 1000ML 1,000 ML IV SCH ×3 (02:36→20:31)
[2017-04-23 04:35] VITALS: BP 128/87
[2017-04-23] MEDS: PIPER-TAZ 3.375 GM/NS 50 ML 50 ML IV SCH ×3 (05:31→20:53)
[2017-04-23 07:29] VITALS: BP 118/76
[2017-04-23] MEDS: PANTOPRAZOLE SOD 40 MG TABEC PO SCH ×2 (07:30→16:30)
[2017-04-23] MEDS: SUCRALFATE 1 GM TAB PO SCH ×4 (07:30→20:53)
[2017-04-23] MEDS: FERROUS SULFATE 325 MG TAB PO SCH ×2 (08:00→17:00)
[2017-04-23] MEDS: ASCORBIC ACID 500 MG TAB PO SCH (09:00)
[2017-04-23] MEDS: BRIMONIDINE/TIMOLOL (OPTH SOLN 5 ML DRPETTE OP SCH ×2 (09:00→20:31)
[2017-04-23] MEDS: MEGACE 400MG/ 10ML CUP PO SCH ×2 (09:00→17:00)
[2017-04-23] MEDS: DIPHENOXYLATE/ATROPINE TAB PO SCH ×2 (09:00→17:00)
[2017-04-23 11:31] VITALS: BP 130/82
[2017-04-23 15:28] VITALS: BP 117/75
[2017-04-23] MEDS: METHYLPREDNISOLONE SOD SUCC 40 MG/ML VIAL IV SCH (17:29)
[2017-04-23] MEDS ORDERED: METHYLPREDNISOLONE ACETATE 40 MG/ML VIAL IM SCH (18:00)
[2017-04-23 20:19] VITALS: BP 121/67
[2017-04-23] MEDS: MESALAMINE 1,000 MG SUPP RC SCH (20:53)
[2017-04-23] MEDS: MELATONIN 3 MG TAB PO SCH (20:53)
[2017-04-24] MEDS: METHYLPREDNISOLONE SOD SUCC 40 MG/ML VIAL IV SCH ×5 (00:08→23:22)
[2017-04-24] MEDS: METRONIDAZOLE 500MG/NS 100ML 100 ML IV SCH ×5 (00:08→23:22)
[2017-04-24] MEDS: TRAMADOL HCL 50 MG TAB PO PRN (04:40)
[2017-04-24 05:44] VITALS: BP 127/84
[2017-04-24] MEDS: PIPER-TAZ 3.375 GM/NS 50 ML 50 ML IV SCH ×3 (06:28→21:07)
[2017-04-24 07:07] LABS: BASOPHILS % 0.1 % (0.0-1.0); HEMATOCRIT 26.3 % (38.2-49.6); HEMOGLOBIN 8.9 g/dL (14.0-18.0); LYMPHOCYTES # (AUTO) 0.6 (1.0-3.2); LYMPHOCYTES % 6.2 % (18.0-39.1); MEAN CORPUSCULAR HEMOGLOBIN 30.1 pg (28-32); MEAN CORPUSCULAR HGB CONC 33.8 g/dL (31-35); MEAN CORPUSCULAR VOLUME 88.9 fL (81-99); MONOCYTES # (AUTO) 0.3 (0.2-0.8); MONOCYTES % 2.8 % (4.4-11.3); NEUTROPHILS # (AUTO) 8.8 (2.1-6.9); NEUTROPHILS % 90.1 % (38.7-80.0); PLATELET COUNT 330 x10e3/uL (140-360); RED BLOOD COUNT 2.96 x10e6/uL (4.3-5.7)
[2017-04-24] MEDS: PANTOPRAZOLE SOD 40 MG TABEC PO SCH ×2 (07:30→16:30)
[2017-04-24] MEDS: SUCRALFATE 1 GM TAB PO SCH ×4 (07:30→21:07)
[2017-04-24 07:39] LABS: ALANINE AMINOTRANSFERASE 7 IU/L (0-55); ALBUMIN 2.1 g/dL (3.5-5.0); ALBUMIN/GLOBULIN RATIO 0.8 (0.8-2.0); ALKALINE PHOSPHATASE 27 IU/L (40-150); ANION GAP 9.8 mmol/L (8-16); BLOOD UREA NITROGEN 16 mg/dL (7-26); BUN/CREATININE RATIO 24 (6-25); CALCIUM 7.9 mg/dL (8.4-10.2); CARBON DIOXIDE 25 mmol/L (22-29); CHLORIDE 108 mmol/L (98-107); CREATININE, SERUM 0.68 mg/dL (0.72-1.25); EST GLOMERULAR FILTRATION RATE > 60 ML/MIN (60-); GLUCOSE 124 mg/dL (74-118); POTASSIUM 3.8 mmol/L (3.5-5.1); SODIUM 139 mmol/L (136-145)
[2017-04-24] MEDS: FERROUS SULFATE 325 MG TAB PO SCH ×2 (08:00→17:00)
[2017-04-24 08:46] VITALS: BP 116/76
[2017-04-24] MEDS: DIPHENOXYLATE/ATROPINE TAB PO SCH ×2 (09:00→17:00)
[2017-04-24] MEDS: ASCORBIC ACID 500 MG TAB PO SCH (09:00)
[2017-04-24] MEDS: BRIMONIDINE/TIMOLOL (OPTH SOLN 5 ML DRPETTE OP SCH ×2 (09:00→21:00)
[2017-04-24] MEDS: MEGACE 400MG/ 10ML CUP PO SCH ×2 (09:00→17:00)
[2017-04-24] MEDS: SODIUM CHLORIDE 0.9% 1000ML 1,000 ML IV SCH ×2 (09:30→20:05)
[2017-04-24 12:00] VITALS: BP 142/86
[2017-04-24 16:23] VITALS: BP 112/71
[2017-04-24 20:00] VITALS: BP 138/83
[2017-04-24] MEDS: ACETAMINOPHEN 325 MG TAB PO PRN (20:06)
[2017-04-24] MEDS: MESALAMINE 1,000 MG SUPP RC SCH (21:07)
[2017-04-24] MEDS: MELATONIN 3 MG TAB PO SCH (21:07)
[2017-04-24] MEDS: ALPRAZOLAM 1 MG TAB PO PRN (21:39)
[2017-04-25] VITALS: BP 142/85
[2017-04-25 04:00] VITALS: BP 148/90
[2017-04-25] MEDS: METHYLPREDNISOLONE SOD SUCC 40 MG/ML VIAL IV SCH ×3 (05:12→17:55)
[2017-04-25] MEDS: PIPER-TAZ 3.375 GM/NS 50 ML 50 ML IV SCH ×3 (05:12→22:12)
[2017-04-25] MEDS: TRAMADOL HCL 50 MG TAB PO PRN ×3 (05:20→19:16)
[2017-04-25] MEDS: METRONIDAZOLE 500MG/NS 100ML 100 ML IV SCH ×3 (05:45→17:55)
[2017-04-25 06:33] LABS: BASOPHILS % 0.1 % (0.0-1.0); HEMATOCRIT 30.1 % (38.2-49.6); LYMPHOCYTES # (AUTO) 0.7 (1.0-3.2); LYMPHOCYTES % 8.6 % (18.0-39.1); MEAN CORPUSCULAR HEMOGLOBIN 29.9 pg (28-32); MEAN CORPUSCULAR HGB CONC 33.2 g/dL (31-35); MEAN CORPUSCULAR VOLUME 89.9 fL (81-99); MONOCYTES # (AUTO) 0.6 (0.2-0.8); MONOCYTES % 6.7 % (4.4-11.3); NEUTROPHILS # (AUTO) 6.9 (2.1-6.9); NEUTROPHILS % 83.9 % (38.7-80.0); PLATELET COUNT 357 x10e3/uL (140-360); RED BLOOD COUNT 3.35 x10e6/uL (4.3-5.7); RED CELL DISTRIBUTION WIDTH 14.6 % (11.7-14.4); RETICULOCYTE % 2.7 % (0.8-2.2)
[2017-04-25 06:54] LABS: ANION GAP 9.6 mmol/L (8-16); BLOOD UREA NITROGEN 19 mg/dL (7-26); BUN/CREATININE RATIO 26 (6-25); CALCIUM 8.3 mg/dL (8.4-10.2); CARBON DIOXIDE 29 mmol/L (22-29); CHLORIDE 105 mmol/L (98-107); CREATININE, SERUM 0.73 mg/dL (0.72-1.25); EST GLOMERULAR FILTRATION RATE > 60 ML/MIN (60-); GLUCOSE 151 mg/dL (74-118); MAGNESIUM 1.9 MG/DL (1.3-2.1); POTASSIUM 3.6 mmol/L (3.5-5.1); SODIUM 140 mmol/L (136-145)
[2017-04-25 08:00] VITALS: BP 129/81
[2017-04-25] MEDS: FERROUS SULFATE 325 MG TAB PO SCH ×2 (08:00→16:52)
[2017-04-25] MEDS: PANTOPRAZOLE SOD 40 MG TABEC PO SCH ×2 (08:30→16:52)
[2017-04-25] MEDS: SUCRALFATE 1 GM TAB PO SCH ×4 (08:30→22:12)
[2017-04-25] MEDS: MEGACE 400MG/ 10ML CUP PO SCH ×2 (09:18→16:52)
[2017-04-25] MEDS: DIPHENOXYLATE/ATROPINE TAB PO SCH ×2 (09:18→16:52)
[2017-04-25] MEDS: ASCORBIC ACID 500 MG TAB PO SCH (09:18)
[2017-04-25] MEDS: BRIMONIDINE/TIMOLOL (OPTH SOLN 5 ML DRPETTE OP SCH ×2 (09:18→22:12)
[2017-04-25 16:00] VITALS: BP 149/79
[2017-04-25] MEDS: MELATONIN 3 MG TAB PO SCH (20:53)
[2017-04-25] MEDS: MESALAMINE 1,000 MG SUPP RC SCH (21:00)
[2017-04-25] MEDS: ALPRAZOLAM 1 MG TAB PO PRN (22:13)
[2017-04-26] VITALS: BP 135/84
[2017-04-26] MEDS: METHYLPREDNISOLONE SOD SUCC 40 MG/ML VIAL IV SCH ×2 (01:00→05:01)
[2017-04-26] MEDS: METRONIDAZOLE 500MG/NS 100ML 100 ML IV SCH (01:00)
[2017-04-26 04:00] VITALS: BP_SYST 106; BP_SYST 122; BP_DIAS 62; BP_DIAS 79
[2017-04-26] MEDS: TRAMADOL HCL 50 MG TAB PO PRN (06:43)
[2017-04-26 07:09] LABS: BASOPHILS % 0.2 % (0.0-1.0); HEMATOCRIT 31.1 % (38.2-49.6); HEMOGLOBIN 10.3 g/dL (14.0-18.0); LYMPHOCYTES # (AUTO) 0.6 (1.0-3.2); MEAN CORPUSCULAR HGB CONC 33.1 g/dL (31-35); MEAN CORPUSCULAR VOLUME 90.7 fL (81-99); MONOCYTES # (AUTO) 0.5 (0.2-0.8); MONOCYTES % 8.8 % (4.4-11.3); NEUTROPHILS # (AUTO) 4.3 (2.1-6.9); NEUTROPHILS % 79.1 % (38.7-80.0); PLATELET COUNT 236 x10e3/uL (140-360); RED BLOOD COUNT 3.43 x10e6/uL (4.3-5.7); RED CELL DISTRIBUTION WIDTH 15.1 % (11.7-14.4)
[2017-04-26 07:25] VITALS: BP 137/92
[2017-04-26] MEDS: SUCRALFATE 1 GM TAB PO SCH ×4 (07:30→20:24)
[2017-04-26] MEDS: PANTOPRAZOLE SOD 40 MG TABEC PO SCH ×2 (08:00→16:30)
[2017-04-26] MEDS: FERROUS SULFATE 325 MG TAB PO SCH ×2 (08:00→17:10)
[2017-04-26 09:04] LABS: ANION GAP 9.7 mmol/L (8-16); BLOOD UREA NITROGEN 21 mg/dL (7-26); BUN/CREATININE RATIO 30 (6-25); CALCIUM 8.4 mg/dL (8.4-10.2); CARBON DIOXIDE 30 mmol/L (22-29); CHLORIDE 105 mmol/L (98-107); EST GLOMERULAR FILTRATION RATE > 60 ML/MIN (60-); GLUCOSE 120 mg/dL (74-118); POTASSIUM 3.7 mmol/L (3.5-5.1); SODIUM 141 mmol/L (136-145)
[2017-04-26] MEDS: BRIMONIDINE/TIMOLOL (OPTH SOLN 5 ML DRPETTE OP SCH ×2 (09:08→21:00)
[2017-04-26] MEDS: MEGACE 400MG/ 10ML CUP PO SCH ×2 (09:08→17:10)
[2017-04-26] MEDS: ASCORBIC ACID 500 MG TAB PO SCH (09:08)
[2017-04-26] MEDS: DIPHENOXYLATE/ATROPINE TAB PO SCH ×2 (09:08→17:10)
[2017-04-26 11:23] VITALS: BP 126/82
[2017-04-26] MEDS ORDERED: FUROSEMIDE INJ 10 MG/ML 2 ML VIAL IV ONE (12:00)
[2017-04-26 15:31] VITALS: BP 122/83
[2017-04-26 19:58] VITALS: BP 120/77
[2017-04-26] MEDS ORDERED: METHYLPREDNISOLONE SOD SUCC 40 MG/ML VIAL IV SCH (21:00)
[2017-04-26] MEDS ORDERED: MELATONIN 3 MG TAB PO SCH (21:00)
[2017-04-26] MEDS: ACETAMINOPHEN 325 MG TAB PO PRN (21:38)
[2017-04-26] MEDS: ALPRAZOLAM 1 MG TAB PO PRN (21:38)
[2017-04-27] MEDS ORDERED: FUROSEMIDE 20 MG TAB PO ONE ×2 (00:45→04:30)
[2017-04-27 01:18] VITALS: BP 112/76
[2017-04-27 05:06] VITALS: BP 125/90
[2017-04-27] MEDS: ACETAMINOPHEN 325 MG TAB PO PRN ×2 (06:25→13:05)
[2017-04-27 07:24] LABS: BASOPHILS % 0.3 % (0.0-1.0); HEMATOCRIT 30.6 % (38.2-49.6); HEMOGLOBIN 10.1 g/dL (14.0-18.0); LYMPHOCYTES # (AUTO) 0.9 (1.0-3.2); LYMPHOCYTES % 15.6 % (18.0-39.1); MEAN CORPUSCULAR HEMOGLOBIN 30.1 pg (28-32); MEAN CORPUSCULAR VOLUME 91.3 fL (81-99); MONOCYTES # (AUTO) 0.9 (0.2-0.8); MONOCYTES % 14.9 % (4.4-11.3); NEUTROPHILS % 67.7 % (38.7-80.0); PLATELET COUNT 344 x10e3/uL (140-360); RED BLOOD COUNT 3.35 x10e6/uL (4.3-5.7); RED CELL DISTRIBUTION WIDTH 15.4 % (11.7-14.4)
[2017-04-27] MEDS: PANTOPRAZOLE SOD 40 MG TABEC PO SCH (07:30)
[2017-04-27] MEDS: SUCRALFATE 1 GM TAB PO SCH ×2 (07:30→12:30)
[2017-04-27] MEDS: FERROUS SULFATE 325 MG TAB PO SCH (08:00)
[2017-04-27 08:02] LABS: ANION GAP 10.1 mmol/L (8-16); BLOOD UREA NITROGEN 22 mg/dL (7-26); BUN/CREATININE RATIO 33 (6-25); CALCIUM 8.3 mg/dL (8.4-10.2); CARBON DIOXIDE 29 mmol/L (22-29); CHLORIDE 105 mmol/L (98-107); CREATININE, SERUM 0.67 mg/dL (0.72-1.25); EST GLOMERULAR FILTRATION RATE > 60 ML/MIN (60-); GLUCOSE 128 mg/dL (74-118); MAGNESIUM 2.2 MG/DL (1.3-2.1); POTASSIUM 4.1 mmol/L (3.5-5.1); SODIUM 140 mmol/L (136-145)
[2017-04-27 08:31] VITALS: BP 128/80
[2017-04-27] MEDS ORDERED: DIPHENOXYLATE/ATROPINE TAB PO SCH (09:00)
[2017-04-27] MEDS ORDERED: PREDNISONE 20 MG TAB PO SCH (09:00)
[2017-04-27] MEDS: MEGACE 400MG/ 10ML CUP PO SCH (09:16)
[2017-04-27] MEDS: ASCORBIC ACID 500 MG TAB PO SCH (09:17)
[2017-04-27] MEDS: BRIMONIDINE/TIMOLOL (OPTH SOLN 5 ML DRPETTE OP SCH (09:26)
[2017-04-27] MEDS ORDERED: PANTOPRAZOLE SO40 MG PO (10:21)
[2017-04-27] MEDS ORDERED: PREVPAC PATIEN1 EACH PO (10:21)
[2017-04-27] MEDS ORDERED: PREDNISONE20 MG PO ×2 (10:21→10:26)
[2017-04-27] MEDS ORDERED: TYLENOL # 31 EA PO (10:35)
[2017-04-27] MEDS ORDERED: ACIDOPHILUS1 EAC1 PO (10:35)
[2017-04-27 11:41] VITALS: BP 135/79
--- NOTE | 2017-04-28 14:42 | Discharge Summary ---
ADMITTING DIAGNOSES: 1. Diarrhea. 2. Proctitis. DISCHARGE DIAGNOSES: 1. Diarrhea. 2. Proctitis. 3. Helicobacter pylori. 4. Gastric ulcers. 5. Left-sided colitis. 6. Ulcerative proctosigmoiditis. Patient has a history of congenital degenerative disorder of the cervical spine, glaucoma, and hernia repair. HOSPITAL COURSE: [age]old male was admitted for diarrhea and weight loss that occurred over the last 10 to 14 days. He ate soup and shortly after started having nausea and vomiting, which resolved, but had poor appetite and diarrhea that lasted for about 10 days. He has lost about 30 pounds over the last year, but his story changed a few times. He says he is not eating much because he does not really have an appetite and thinks that eating might make his diarrhea worse. Upon admission, we did a urine culture which was negative, blood cultures that were negative, stool cultures that were negative, ova and parasite negative, and C. diff negative. Due to the weight loss, a CAT scan of the chest was performed, which was negative. Due to the nausea, we did ultrasound of the abdomen, which was negative; and a CT of the brain that showed no acute abnormalities, and a CT of abdomen which showed proctitis. On April 17, the patient got an EGD and colonoscopy, the EGD showed normal esophagus and multiple gastric ulcers, and the colonoscopy showed mild patchy left-sided colitis, ulcerative proctosigmoiditis and internal hemorrhoids with no active bleeding. After a few days of antibiotics, the patient complained that he was not feeling any better, although per RN's report, the patient was having less diarrhea, was eating well, and ambulating to the restroom by himself although he would still use the diaper. After 11 days of antibiotics, patient was discharged to home with prednisone, Protonix, and Prevpac per GI recommendation. Both GI and Dr. Dwyer approved discharge. Patient was very reluctant and did not agree with discharge at initial conversation but after talking to him for a while, he was sent home on those medicines plus lactobacillus and Tylenol No. 3 to help with the pain. Patient was sent home with friends. Patient is to follow up with Dr. Garibay in 2 weeks and PCP in 2 weeks. Dictated by Fanny Isaac, DATABASE MODELER CASSIE DWYER MD Job#: [id number]
== END 2017-04-27 14:43 | disposition home or self-care (01) | DRG 385 ==
LOC: ER 20:22 → ERHOLD 04-16 01:11 → MED/SURG3 04-16 14:28
PROVIDERS: ADMIT Internal Medicine; ATTEND Internal Medicine
PROC: 0DB78ZX Excision of Stomach, Pylorus, Via Natural or Artificial Opening Endoscopic, Diagnostic (ICD-10-PCS; principal; 2017-04-19)
PROC: 0DB68ZX Excision of Stomach, Via Natural or Artificial Opening Endoscopic, Diagnostic (ICD-10-PCS; 2017-04-19)
PROC: 0DBN8ZX Excision of Sigmoid Colon, Via Natural or Artificial Opening Endoscopic, Diagnostic (ICD-10-PCS; 2017-04-19)
PROC: 0DBB8ZX Excision of Ileum, Via Natural or Artificial Opening Endoscopic, Diagnostic (ICD-10-PCS; 2017-04-19)
PROC: 0DBG8ZX Excision of Left Large Intestine, Via Natural or Artificial Opening Endoscopic, Diagnostic (ICD-10-PCS; 2017-04-19)
DX: K51.50 Left sided colitis without complications (principal); E43 Unspecified severe protein-calorie malnutrition; R64 Cachexia; K25.9 Gastric ulcer, unspecified as acute or chronic, without hemorrhage or perforation; K51.30 Ulcerative (chronic) rectosigmoiditis without complications; B96.81 Helicobacter pylori [H. pylori] as the cause of diseases classified elsewhere; K62.89 Other specified diseases of anus and rectum; M50.30 Other cervical disc degeneration, unspecified cervical region; H40.9 Unspecified glaucoma; Z68.20 Body mass index [BMI] 20.0-20.9, adult; E87.6 Hypokalemia; R33.9 Retention of urine, unspecified; G47.00 Insomnia, unspecified; D64.9 Anemia, unspecified; K64.8 Other hemorrhoids
CPT/HCPCS: 36415; 43239; 45380; 70450; 71020; 71260; 74177; 76770; 80048; 80053; 80202; 81001; 82270; 82607; 82728; 82746; 83540; 83630; 83735; 83993; 84132; 84134; 84152; 84443; 84466; 85025; 85045; 85651; 86140; 86256; 86671; 87040; 87045; 87086; 87177; 87328; 87390; 87493; 88305; 88312; 88342; 93041; 96367; 97139; 99284; G0433; G0435; J1030; J1040; J1940; J2060; J2250; J2270; J2405; J2543; J2920; J7030; J7050; J7070; Q9967

== ENCOUNTER 2018-02-18 16:36 | Observation (INO) | payer MEDICARE ==
[~2018-02-18] VITALS: Ht 172.7 cm; Wt 61.7 kg
[~2018-02-18 16:36] MED LIST: ACIDOPHILUS1 EAC1 PO; BRIMONIDINE TART5 ML OP; COMBIGAN EYE DRO5 ML OU; PANTOPRAZOLE SO40 MG PO; PREDNISONE20 MG PO; PREVPAC PATIEN1 EACH PO; TYLENOL # 31 EA PO; ULTRAM 50MG50 MG PO
[2018-02-18] MEDS ORDERED: SODIUM CHLORIDE 0.9% 1000ML 1,000 ML IV STA (16:51)
[2018-02-18] MEDS ORDERED: ONDANSETRON HCL INJ 2 MG/ML VIAL IV PRN ×3 (17:00→19:00)
[2018-02-18] MEDS ORDERED: FAMOTIDINE 20 MG/2 ML VIAL IV ONE (17:00)
[2018-02-18 17:11] LABS: BASOPHILS % 0.3 % (0.0-1.0); EOSINOPHILS # (AUTO) 0.1 (0.0-0.4); EOSINOPHILS % 2.1 % (0.0-6.0); HEMOGLOBIN 11.8 g/dL (14.0-18.0); LYMPHOCYTES # (AUTO) 1.7 (1.0-3.2); LYMPHOCYTES % 24.9 % (18.0-39.1); MEAN CORPUSCULAR HEMOGLOBIN 28.6 pg (28-32); MEAN CORPUSCULAR HGB CONC 31.9 g/dL (31-35); MEAN CORPUSCULAR VOLUME 89.6 fL (81-99); MONOCYTES # (AUTO) 0.7 (0.2-0.8); MONOCYTES % 11.1 % (4.4-11.3); NEUTROPHILS # (AUTO) 4.1 (2.1-6.9); NEUTROPHILS % 61.3 % (38.7-80.0); PLATELET COUNT 262 x10e3/uL (140-360); RED BLOOD COUNT 4.13 x10e6/uL (4.3-5.7); RED CELL DISTRIBUTION WIDTH 13.5 % (11.7-14.4)
[2018-02-18 17:16] LABS: AMPHETAMINES SCREEN,URINE NEGATIVE (NEGATIVE); BENZODIAZEPINES SCREEN,URINE POSITIVE (NEGATIVE); PHENCYCLIDINE SCREEN,URINE NEGATIVE (NEGATIVE)
--- NOTE | 2018-02-18 17:47 | Diagnostic Imaging Report ---
EXAMINATION: CHEST SINGLE (PORTABLE) COMPARISON: Chest x-ray 02/07/2018 INDICATION: Weakness, altered level of consciousness, chest pain DISCUSSION: Frontal view of the chest obtained at 1711 hours. HEART AND MEDIASTINUM: The heart is normal in size. The aorta is ectatic LINES: None. LUNGS: The lungs are well inflated and clear. No pneumonia or pulmonary edema. PLEURA: No pleural effusion or pneumothorax. BONES AND SOFT TISSUES: No focal osseous lesion. The soft tissues are normal. IMPRESSION: No acute cardiopulmonary disease. Signed by: Dr. Tania Tompkins MD on 02/18/2018 5:43 PM
[2018-02-18 17:53] LABS: ALANINE AMINOTRANSFERASE 12 IU/L (0-55); ALBUMIN 3.8 g/dL (3.5-5.0); ALKALINE PHOSPHATASE 49 IU/L (40-150); AMYLASE 41 U/L (25-125); ANION GAP 13.9 mmol/L (8-16); BLOOD UREA NITROGEN 19 mg/dL (7-26); BUN/CREATININE RATIO 17 (6-25); CARBON DIOXIDE 25 mmol/L (22-29); CHLORIDE 104 mmol/L (98-107); CREATINE KINASE 122 IU/L (30-200); CREATININE, SERUM 1.12 mg/dL (0.72-1.25); EST GLOMERULAR FILTRATION RATE > 60 ML/MIN (60-); GLUCOSE 92 mg/dL (74-118); LIPASE 22 U/L (8-78); MAGNESIUM 2.1 MG/DL (1.3-2.1); POTASSIUM 3.9 mmol/L (3.5-5.1); SODIUM 139 mmol/L (136-145)
[2018-02-18] MEDS ORDERED: SODIUM CHLORIDE 0.9% 1000ML 1,000 ML IV SCH (18:49)
--- NOTE | 2018-02-18 18:56 | Diagnostic Imaging Report ---
History:Head pain, AMS Comparison studies:None Technique: Axial images were obtained from the skull base to the vertex. Coronal and sagittal images reconstructed from the axial data. Intravenous contrast: None Dose modulation, iterative reconstruction, and/or weight based adjustment of the mA/kV was utilized to reduce the radiation dose to as low as reasonably achievable. Findings: Scalp/skull: No abnormalities. Extra-axial spaces: No masses. No fluid collections. Brain sulci: Mildly prominent. Ventricles: Mild compensatory dilatation. No hydrocephalus. Parenchyma: Scattered small hypodensities in the supratentorial white matter are small vessel ischemic changes. No masses, hemorrhage, acute or chronic cortical vascular insults. Sellar/suprasellar region: No abnormalities. Craniocervical junction: Patent foramen magnum. No Chiari one malformation. Incidental findings: Atherosclerotic calcifications in the carotid siphons . Impression: No acute abnormalities. Chronic findings: 1. Mild generalized volume loss. 2. Mild supratentorial white matter small vessel ischemic changes. Stable examination Signed by: DR Acosta Isbell M.D. on 02/18/2018 6:52 PM
[2018-02-18] MEDS ORDERED: PROMETHAZINE HCL 25 MG TAB PO PRN (19:00)
[2018-02-18] MEDS ORDERED: LACTULOSE SYRUP 20 GM/30 ML UDC PO PRN (19:00)
[2018-02-18] MEDS ORDERED: CLONIDINE HCL 0.1 MG TAB PO PRN (19:00)
[2018-02-18] MEDS ORDERED: ZOLPIDEM TARTRATE 5 MG TAB PO PRN (19:00)
[2018-02-18] MEDS ORDERED: DIPHENHYDRAMINE HCL INJ 50 MG/ML VIAL IV PRN (19:00)
[2018-02-18] MEDS ORDERED: ENALAPRILAT IV INJ 1.25 MG/ML VIAL IV PRN (19:00)
[2018-02-18 21:15] VITALS: BP 137/82
[2018-02-19] MEDS ORDERED: FAMOTIDINE 20 MG TAB PO SCH (07:30)
== END 2018-02-18 21:23 | disposition left against medical advice (07) ==
LOC: ER 16:36 → ERHOLD 19:13 → MED/SURG3 20:11
PROVIDERS: ADMIT Internal Medicine; ATTEND Internal Medicine
DX: E86.0 Dehydration (principal); R53.1 Weakness; R10.84 Generalized abdominal pain
CPT/HCPCS: 36415; 70450; 71045; 80053; 80307; 82140; 82150; 82550; 82553; 83690; 83735; 83880; 84484; 85025; 93005; 99284; G0378; J2405; J7030

== ENCOUNTER 2018-03-09 18:56 | Emergency (ER) | payer MEDICARE ==
[~2018-03-09] VITALS: Ht 172.7 cm; Wt 61.7 kg
[2018-03-09] MEDS ORDERED: DIATRIZOATE MEGL/DIATRIZOA SOD 30 ML BTL PO ONE ×2 (19:30)
[2018-03-09 19:39] LABS: BASOPHILS % 0.3 % (0.0-1.0); EOSINOPHILS % 0.1 % (0.0-6.0); HEMATOCRIT 41.4 % (38.2-49.6); HEMOGLOBIN 13.2 g/dL (14.0-18.0); LYMPHOCYTES # (AUTO) 1.5 (1.0-3.2); LYMPHOCYTES % 21.1 % (18.0-39.1); MEAN CORPUSCULAR HEMOGLOBIN 28.6 pg (28-32); MEAN CORPUSCULAR HGB CONC 31.9 g/dL (31-35); MEAN CORPUSCULAR VOLUME 89.6 fL (81-99); MONOCYTES # (AUTO) 0.5 (0.2-0.8); MONOCYTES % 7.1 % (4.4-11.3); NEUTROPHILS # (AUTO) 5.2 (2.1-6.9); PLATELET COUNT 276 x10e3/uL (140-360); RED BLOOD COUNT 4.62 x10e6/uL (4.3-5.7); RED CELL DISTRIBUTION WIDTH 14.4 % (11.7-14.4)
[2018-03-09 19:40] LABS: CLARITY,URINE SL CLOUDY (CLEAR); COLOR,URINE YELLOW (YELLOW)
[2018-03-09 19:41] LABS: BILIRUBIN,URINE 1+ (NEGATIVE); KETONES,URINE TRACE (NEGATIVE); LEUKOCYTE ESTERASE ,URINE NEGATIVE (NEGATIVE); NITRITE,URINE NEGATIVE (NEGATIVE); PROTEIN,URINE DIPSTICK 1+ (NEGATIVE); URINE UROBILINOGEN 0.2 mg/dL (0.2 - 1)
[2018-03-09 19:53] LABS: ALANINE AMINOTRANSFERASE 24 IU/L (0-55); ALBUMIN 4.1 g/dL (3.5-5.0); ALBUMIN/GLOBULIN RATIO 1.1 (0.8-2.0); ALKALINE PHOSPHATASE 56 IU/L (40-150); AMYLASE 75 U/L (25-125); ANION GAP 15.2 mmol/L (8-16); BLOOD UREA NITROGEN 26 mg/dL (7-26); BUN/CREATININE RATIO 25 (6-25); CALCIUM 10.1 mg/dL (8.4-10.2); CARBON DIOXIDE 26 mmol/L (22-29); CHLORIDE 102 mmol/L (98-107); CREATININE, SERUM 1.06 mg/dL (0.72-1.25); EST GLOMERULAR FILTRATION RATE > 60 ML/MIN (60-); GLUCOSE 105 mg/dL (74-118); LIPASE 27 U/L (8-78); POTASSIUM 4.2 mmol/L (3.5-5.1); SODIUM 139 mmol/L (136-145)
[2018-03-09 19:55] LABS: BACTERIA,URINE MODERATE /HPF; CALCIUM OXALATE CRYSTALS,UR MODERATE (FEW); EPITHELIAL CELLS,URINE FEW /LPF; MUCUS,URINE MANY (RARE)
[2018-03-09] MEDS ORDERED: SODIUM CHLORIDE 0.9% 50ML 50 ML ONE (20:20)
[2018-03-09] MEDS ORDERED: IOPAMIDOL 370 MG/ML 200 ML INFUS..BTL INJ ONE (20:21)
--- NOTE | 2018-03-09 22:05 | Diagnostic Imaging Report ---
EXAM: CT Abdomen and Pelvis WITH contrast INDICATION: Abdominal pain, diarrhea COMPARISON: None. TECHNIQUE: Abdomen and pelvis were scanned utilizing a multidetector helical scanner from the lung base to the pubic symphysis after administration of IV contrast. Coronal and sagittal reformations were obtained. Routine protocol was performed. Scan was performed when during portal venous phase. IV CONTRAST: 100 mL of Isovue-370 ORAL CONTRAST: Gastrografin RADIATION DOSE: Total DLP: 211.6 mGy*cm Estimated effective dose: (DLP x 0.015 x size factor) mSv COMPLICATIONS: None FINDINGS: LINES and TUBES: None. LOWER THORAX: Unremarkable HEPATOBILIARY: There is focal fatty infiltration adjacent to the falciform ligament. No focal hepatic lesions. No biliary ductal dilation. GALLBLADDER: No radio-opaque stones or sludge. No wall thickening. SPLEEN: No splenomegaly. PANCREAS: No focal masses or ductal dilatation. ADRENALS: No adrenal nodules KIDNEYS/URETERS: Kidneys enhance symmetrically. No hydronephrosis. Bilateral renal cysts, the largest in the left inferior pole measuring 4 cm in diameter and the largest in the inferior right renal pole measuring 2.5 cm in diameter. Additional small indeterminate hypodensities are noted bilaterally No stones. GI TRACT: No abnormal distention, wall thickening, or evidence of bowel obstruction. Appendix is normal. PELVIC ORGANS/BLADDER: Unremarkable. LYMPH NODES: No lymphadenopathy. VESSELS: There is mild atherosclerotic disease in the aorta and major arterial branches. PERITONEUM / RETROPERITONEUM: No free air or fluid. BONES: Unremarkable. SOFT TISSUES: There are fat containing inguinal hernias. Prominent vasculature along the left inguinal canal suggests a varicocele IMPRESSION: 1. No evidence of acute intra-abdominal or pelvic abnormality on today's examination. 2. Small bilateral fat-containing inguinal hernias with questionable left varicocele Signed by: Dr. Vamshi Kapadia M.D. on 03/09/2018 10:01 PM
[2018-03-09 22:21] VITALS: BP 149/90
== END 2018-03-09 22:38 | disposition home or self-care (01) ==
LOC: ER 18:56
DX: R19.7 Diarrhea, unspecified (principal); K59.00 Constipation, unspecified; K50.90 Crohn's disease, unspecified, without complications; Z94.7 Corneal transplant status
CPT/HCPCS: 36415; 74177; 80053; 81001; 82150; 83690; 85025; 99284; Q9967

== ENCOUNTER 2018-06-26 15:43 | Emergency (ER) | payer MEDICARE ==
[~2018-06-26] VITALS: Ht 172.7 cm; Wt 61.7 kg
[2018-06-26] MEDS ORDERED: DIATRIZOATE MEGL/DIATRIZOA SOD 30 ML BTL PO ONE (16:23)
--- NOTE | 2018-06-26 17:51 | NUR ---
REFUSING FLU SWAB AND EKG. 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 LEFT EAR PT NOW STATES HE DID FALL A FEW DAYS AGO LANDING ON LEFT EAR.
[2018-06-26 18:23] LABS: BASOPHILS % 0.2 % (0.0-1.0); EOSINOPHILS % 0.2 % (0.0-6.0); HEMATOCRIT 33.7 % (38.2-49.6); HEMOGLOBIN 10.7 g/dL (14.0-18.0); LYMPHOCYTES # (AUTO) 1.2 (1.0-3.2); LYMPHOCYTES % 19.6 % (18.0-39.1); MEAN CORPUSCULAR HEMOGLOBIN 27.6 pg (28-32); MEAN CORPUSCULAR HGB CONC 31.8 g/dL (31-35); MEAN CORPUSCULAR VOLUME 86.9 fL (81-99); MONOCYTES # (AUTO) 0.5 (0.2-0.8); MONOCYTES % 8.5 % (4.4-11.3); NEUTROPHILS # (AUTO) 4.4 (2.1-6.9); NEUTROPHILS % 71.2 % (38.7-80.0); PLATELET COUNT 252 x10e3/uL (140-360); RED BLOOD COUNT 3.88 x10e6/uL (4.3-5.7)
[2018-06-26 18:30] LABS: INR 0.95; PROTHROMBIN TIME 13.6 seconds (11.9-14.5)
[2018-06-26 18:31] LABS: PARTIAL THROMBOPLASTIN TIME 36.5 seconds (23.8-35.5)
[2018-06-26 18:41] LABS: ALANINE AMINOTRANSFERASE 11 IU/L (0-55); ALBUMIN 4.1 g/dL (3.5-5.0); ALBUMIN/GLOBULIN RATIO 1.1 (0.8-2.0); ALKALINE PHOSPHATASE 62 IU/L (40-150); AMYLASE 34 U/L (25-125); BLOOD UREA NITROGEN 21 mg/dL (7-26); BUN/CREATININE RATIO 20 (6-25); CALCIUM 9.3 mg/dL (8.4-10.2); CARBON DIOXIDE 25 mmol/L (22-29); CHLORIDE 99 mmol/L (98-107); CREATINE KINASE 202 IU/L (30-200); CREATININE, SERUM 1.05 mg/dL (0.72-1.25); EST GLOMERULAR FILTRATION RATE > 60 ML/MIN (60-); GLUCOSE 99 mg/dL (74-118); LIPASE 13 U/L (8-78); MAGNESIUM 2.7 MG/DL (1.3-2.1); SODIUM 137 mmol/L (136-145)
--- NOTE | 2018-06-26 20:17 | Diagnostic Imaging Report ---
EXAM: CT of the abdomen and pelvis WITH contrast HISTORY: adominal pain COMPARISON: CT of the abdomen and pelvis March 09, 2018. TECHNIQUE: The abdomen and pelvis were scanned utilizing a multidetector helical scanner. Coronal and sagittal reformats are provided. PROTOCOL: Routine IV CONTRAST: 100 cc of Isovue-370. ORAL CONTRAST: None, which limits sensitivity and specificity of the exam. RADIATION DOSE: Total DLP: 375.26 mGy*cm Estimated effective dose: (DLP x 0.015 x size factor) Dose modulation, iterative reconstruction, and/or weight based adjustment of the mA/kV was utilized to reduce the radiation dose to as low as reasonably achievable. COMPLICATIONS: None FINDINGS: LINES and TUBES: None. LOWER THORAX: Unremarkable HEPATOBILIARY: Stable focal fatty infiltration adjacent to the falciform ligament. No focal hepatic lesions. No biliary ductal dilation. GALLBLADDER: No radio-opaque stones or sludge. No wall thickening. SPLEEN: No splenomegaly. PANCREAS: No focal masses or ductal dilatation. ADRENALS: No adrenal nodules KIDNEYS/URETERS: Kidneys enhance symmetrically. No hydronephrosis. Bilateral renal cysts, the largest in the left inferior pole measuring 4 cm in diameter and the largest in the inferior right renal pole measuring 2.5 cm in diameter, no significant change. Additional small indeterminate hypodensities, likely an additional small cyst. No stones. GI TRACT: No abnormal distention, wall thickening, or evidence of bowel obstruction. Appendix is normal. PELVIC ORGANS/BLADDER: Mildly enlarged prostate, 5.2 cm (ML). LYMPH NODES: No lymphadenopathy. VESSELS: Scattered atherosclerotic vascular calcifications. PERITONEUM / RETROPERITONEUM: No free air or fluid. BONES: Unremarkable. SOFT TISSUES: There are fat containing inguinal hernias. IMPRESSION: 1. No acute CT abnormality. 2. No significant interval change. Signed by: Dr. Kaushik Bailey D.O., M.M.M. on 06/26/2018 8:13 PM
--- NOTE | 2018-06-26 20:30 | NUR ---
THIS RN, Laly PUGH RN, AND ER MD IN TRIAGE AND INFORMED PT THAT CT BRAIN WOULD BE ORDERED, PT REFUSING CT; INFORMED PT THAT I WOULD HAVE TO DOCUMENT REFUSAL AND HAVE PT SIGN AMA FORM, PT REFUSES, STATING, "NO, I'M GOING TO SIT OUT HERE BECAUSE YOU'RE THREATENING ME." INFORMED PT I WAS NOT THREATENING HIM, THAT I WAS ATTEMPTING TO HELP HIM. PT LEFT TRIAGE AND WENT TO SIT IN WAITING ROOM.
[2018-06-26] MEDS ORDERED: SODIUM CHLORIDE 0.9% 50ML 50 ML ONE (20:43)
[2018-06-26] MEDS ORDERED: IOPAMIDOL 370 MG/ML 200 ML INFUS..BTL INJ ONE (20:43)
[2018-06-26 20:58] LABS: BILIRUBIN,URINE NEGATIVE (NEGATIVE); CLARITY,URINE CLEAR (CLEAR); COLOR,URINE YELLOW (YELLOW); KETONES,URINE 1+ (NEGATIVE); LEUKOCYTE ESTERASE ,URINE NEGATIVE (NEGATIVE); NITRITE,URINE NEGATIVE (NEGATIVE); PROTEIN,URINE DIPSTICK NEGATIVE (NEGATIVE); URINE UROBILINOGEN 0.2 mg/dL (0.2 - 1)
[2018-06-26 21:04] LABS: BACTERIA,URINE FEW /HPF; EPITHELIAL CELLS,URINE FEW /LPF; RBC,URINE 0-5 /HPF (0-5)
[2018-06-26] MEDS ORDERED: BELLADONNA ALK/PHENOBARBITAL 5 ML UDC ONE (23:46)
[2018-06-26] MEDS ORDERED: LIDOCAINE VISC 2% SOLN 15 ML UDC ONE (23:46)
[2018-06-26] MEDS ORDERED: MAGNESIUM/ALUMINUM/SIMETHICONE 30 ML UDC ONE (23:46)
--- NOTE | 2018-06-27 01:20 | Diagnostic Imaging Report ---
EXAMINATION: Head CT without contrast. HISTORY:Fall. COMPARISON:CT brain from 02/18/2018. TECHNIQUE: Multidetector axial images were obtained from the foramen magnum to the vertex without contrast. The images were reconstructed using brain and bone algorithms. Thin section brain images were reformatted into coronal and sagittal planes. Dose modulation, iterative reconstruction, and/or weight based adjustment of the mA/kV was utilized to reduce the radiation dose to as low as reasonably achievable. Intravenous contrast: None IMAGE QUALITY: Acceptable. FINDINGS: Skull/scalp: No lytic or blastic. lesions. No surgical changes. Parenchyma: Unchanged nonspecific bilateral frontoparietal patchy white matter hypodensity are likely related to small vessel ischemic changes. No acute hemorrhage, mass or acute major vascular territorial infarct. Arteries: No density suggestive of thrombosis. Dural sinuses: No abnormal density suggestive of thrombosis. Ventricles: No hydrocephalus or displacement. Extra-axial spaces: No abnormal density. Brain volume: Mild generalized cerebral volume loss. Craniocervical junction: No mass, Chiari malformation, or basilar invagination. Sella: No mass. Paranasal/mastoid sinuses: Imaged portions unremarkable. IMPRESSION: No acute intracranial abnormality. No change since CT brain from 02/18/2018. Chronic findings: 1. Mild generalized cerebral volume loss. 2. Mild supratentorial white matter microvascular ischemic changes. Signed by: Dr. Anna Stewart M.D. on 06/27/2018 1:17 AM
--- NOTE | 2018-06-27 01:42 | NUR ---
ATTEMPTED TO CALL PTS SON FOR PT MEDICAL AIDE, NO ANSWER, MESSAGE LEFT ON ANSWERING MACHINE
== END 2018-06-27 02:48 | disposition home or self-care (01) ==
LOC: ER 15:43
DX: R10.84 Generalized abdominal pain (principal); R11.2 Nausea with vomiting, unspecified; R19.7 Diarrhea, unspecified; B34.9 Viral infection, unspecified
CPT/HCPCS: 36415; 70450; 74177; 80053; 81001; 82150; 82550; 82553; 83605; 83690; 83735; 84484; 85025; 85610; 85730; 99283; Q9967